=== PATIENT | female | born 1995 | race African-American/Black ===

== ENCOUNTER 2020-11-01 00:50 | Emergency (ER) | payer BC, OTHER ==
[~2020-11-01] VITALS: Ht 160 cm; Wt 49.9 kg
[2020-11-01 00:55] VITALS: BP 116/67
[2020-11-01] MEDS ORDERED: NORCO 10-325 T1 EACH PO (01:22)
[2020-11-01] MEDS ORDERED: SSD CREAM 1% 5050 GM TOP (01:22)
[2020-11-01] MEDS ORDERED: NAPROSYN500 MG PO (01:22)
== END 2020-11-01 01:50 | disposition home or self-care (01) ==
LOC: ER 00:50
DX: T22.20XA Burn of second degree of shoulder and upper limb, except wrist and hand, unspecified site, initial encounter (principal); T24.211A Burn of second degree of right thigh, initial encounter; X10.1XXA Contact with hot food, initial encounter; Y93.G3 Activity, cooking and baking; Y92.89 Other specified places as the place of occurrence of the external cause; Y99.8 Other external cause status